=== PATIENT | male | born 1990 | race Caucasian/White ===

== ENCOUNTER 2023-06-22 11:10 | Emergency (ER) | payer SELFPAY ==
[~2023-06-22] VITALS: Ht 190.5 cm; Wt 100.0 kg
[2023-06-22 11:21] VITALS: O2SAT 98
[2023-06-22 11:42] LABS: BASOPHILS % 0.5 % (0.0-2.0); EOSINOPHILS % 0.1 % (0.0-5.0); HEMOGLOBIN. 14.5 g/dL (14.0-18.0); LYMPHOCYTES % 18.4 % (20.0-50.0); MEAN CORPUSCULAR HEMOGLOBIN 29.1 pg (28.0-32.0); MEAN CORPUSCULAR HGB CONC 33.8 g/dL (31.0-37.0); MEAN CORPUSCULAR VOLUME 86.2 fL (80.0-94.0); MEAN PLATELET VOLUME 8.9 fl (7.4-10.4); MONOCYTES % 4.1 % (2.0-8.0); NEUTROPHILS % 76.9 % (40.0-76.0); PLATELET 219 x1000/uL (130-400); RED BLOOD CELL COUNT 4.99 mill/uL (4.7-6.1); RED CELL DISTRIBUTION WIDTH 14.1 % (11.6-14.6); WHITE BLOOD COUNT 6.7 x1000/uL (4.5-11.0)
[2023-06-22 11:45] VITALS: BP 124/78; PULSE 61; RESP 18; TEMP 97.9
[2023-06-22 11:46] LABS: CHLORIDE 106 mEq/L (98-107); POTASSIUM 3.8 mEq/L (3.5-5.1); SODIUM 141 mEq/L (136-145)
[2023-06-22 11:47] LABS: CALCIUM 10.3 mg/dL (8.7-10.4); CARBON DIOXIDE 28 mEq/L (21-32)
[2023-06-22 11:52] LABS: CREATININE 0.9 mg/dL (0.6-1.3); GLUCOSE 92 mg/dL (70-105); UREA NITROGEN BLOOD 9 mg/dL (9-23)
[2023-06-22 11:54] LABS: ALANINE AMINOTRANSFERASE 8 IU/L (10-49); ALBUMIN 4.9 g/dL (3.2-4.8); ASPARTATE AMINOTRANSFERASE 15 IU/L (<34); BILIRUBIN DIRECT 0.5 mg/dL (<=3.0)
[2023-06-22 11:55] LABS: BILIRUBIN TOTAL 1.6 mg/dL (0.1-1.0); PROTEIN TOTAL 7.8 g/dL (6.0-8.3)
[2023-06-22] MEDS: SODIUM CHLORIDE 0.9% 1,000 ML IV ONE (12:07)
[2023-06-22] MEDS: ONDANSETRON HCL 4MG/2ML INJ IV ONE (12:07)
[2023-06-22 13:14] LABS: CLARITY URINE CLEAR (CLEAR); COLOR URINE YELLOW (YELLOW); GLUCOSE URINE NEGATIVE (NEGATIVE); KETONES URINE NEGATIVE (NEGATIVE); LEUKOCYTE ESTERASE URINE NEGATIVE (NEGATIVE); NITRITE URINE NEGATIVE (NEGATIVE); OCCULT BLOOD URINE NEGATIVE (NEGATIVE); PROTEIN URINE NEGATIVE (NEGATIVE); SPECIFIC GRAVITY URINE 1.003 (1.005-1.030); UROBILINOGEN URINE 0.2 E.U./dL (0.2-1.0)
[2023-06-22] MEDS ORDERED: LOPE2CAP MT (13:21)
== END 2023-06-22 14:33 | disposition home or self-care (01) ==
LOC: ER 11:10
DX: R11.10 Vomiting, unspecified (principal); R19.7 Diarrhea, unspecified
CPT/HCPCS: 80076; 80048; 81003; 83690; 85025; 36415; 96374; 99283; J2405; J7030; Z7610